=== PATIENT | male | born 1985 | race Caucasian/White ===

== ENCOUNTER → 2018-06-21 | Outpatient (CLI) | payer OTHER | LOC: M LRY 15:42 | DX: R10.32 Left lower quadrant pain (principal) | CPT/HCPCS: 74018 ==

== ENCOUNTER → 2018-06-21 | Outpatient (REF) | payer OTHER | LOC: M SFHCLERA 16:02 | DX: R10.32 Left lower quadrant pain (principal) ==

== ENCOUNTER 2018-08-14 15:57 | Emergency (ER) | payer OTHER | END 2018-08-14 18:36 | disposition left against medical advice (07) | LOC: M ED 15:57 | DX: R21 Rash and other nonspecific skin eruption (principal); Z53.21 Procedure and treatment not carried out due to patient leaving prior to being seen by health care provider ==

== ENCOUNTER 2018-08-17 12:36 | Emergency (ER) | payer OTHER | END 2018-08-17 17:30 | disposition home or self-care (01) | LOC: M ED 12:36 | DX: L29.9 Pruritus, unspecified (principal); R56.9 Unspecified convulsions; F33.9 Major depressive disorder, recurrent, unspecified; F41.9 Anxiety disorder, unspecified; F90.9 Attention-deficit hyperactivity disorder, unspecified type; Z79.899 Other long term (current) drug therapy; Z79.891 Long term (current) use of opiate analgesic | CPT/HCPCS: 99283 ==

== ENCOUNTER 2020-04-29 11:16 | Emergency (ER) | payer OTHER ==
[~2020-04-29] VITALS: Ht 182.9 cm; Wt 79.1 kg
[~2020-04-29 11:16] MED LIST: ADDE12.5 PO; ELIM5CRE2 TOP; HYDR-3363 PO; KEFL500C17 PO; SUBO8MIS SL
[2020-04-29] MEDS ORDERED: ADDE30TA (11:24)
[2020-04-29] MEDS ORDERED: SULF1TAB93 (11:24)
[2020-04-29] MEDS ORDERED: ADDE20TA (11:24)
[2020-04-29 12:06] LABS: BASO # 0.1 10^3/uL (0.0-0.2); BASO % 0.9 % (0.0-1.0); EOS # 0.2 10^3/uL (0.0-0.5); EOS % 3.1 % (0.0-3.0); HEMATOCRIT 40.7 % (42.0-52.0); HEMOGLOBIN 13.7 g/dl (13.5-17.5); LYMPH # 2.2 10^3/uL (1.5-5.0); MEAN CORPUSCULAR HEMOGLOBIN 29.5 pg (27.0-33.0); MEAN CORPUSCULAR HGB CONC 33.7 g/dl (32.0-36.5); MEAN CORPUSCULAR VOLUME 87.5 fl (80.0-96.0); MONO # 0.7 10^3/uL (0.0-0.8); MONO % 9.9 % (0.0-5.0); NEUTROPHILS # 3.5 10^3/uL (1.5-8.5); NEUTROPHILS % 52.7 % (36.0-66.0); PLATELET COUNT, AUTOMATED 295 10^3/uL (150-450); RED BLOOD COUNT 4.65 10^6/uL (4.30-6.10); WHITE BLOOD COUNT 6.7 10^3/uL (4.0-10.0)
[2020-04-29 12:34] LABS: ALBUMIN 3.5 GM/DL (3.2-5.2); ALT/SGPT 40 U/L (12-78); BILIRUBIN,TOTAL 0.2 MG/DL (0.2-1.0); BLOOD UREA NITROGEN 8 MG/DL (7-18); C REACTIVE PROTEIN QUANTITATIV 4.82 MG/DL (0.00-0.30); CALCIUM LEVEL 8.8 MG/DL (8.5-10.1); CARBON DIOXIDE LEVEL 30 MEQ/L (21-32); CHLORIDE LEVEL 103 MEQ/L (98-107); CREATININE FOR GFR 0.89 MG/DL (0.70-1.30); GLOMERULAR FILTRATION RATE > 60.0 (>60); GLUCOSE, FASTING 89 MG/DL (70-100); SODIUM LEVEL 138 MEQ/L (136-145); TOTAL PROTEIN 7.5 GM/DL (6.4-8.2)
[2020-04-29 12:38] LABS: ERYTHROCYTE SEDIMENTATION RATE 30 mm/hr (0-15)
--- NOTE | 2020-04-29 13:29 | REP ---
Right lower extremity Duplex Doppler venous ultrasound: Real time compression and duplex Doppler interrogation of the right lower extremity deep venous system is performed. The right common femoral, superficial femoral and popliteal veins are fully compressible with transducer pressure and demonstrate normal spontaneous and phasic flow, without evidence of deep venous thrombosis. Impression: No evidence of deep venous thrombosis of the right lower extremity femoral popliteal venous system. Electronically Signed by Beni Diaz MD 04/29/2020 01:21 P
[2020-04-29] MEDS ORDERED: DALBAVANCIN 1,500 MG in D5W 250 ML IV ONE (15:00)
[2020-04-29 16:06] VITALS: BP 115/63
== END 2020-04-29 16:18 | disposition home or self-care (01) ==
LOC: M ED 11:16
DX: L03.115 Cellulitis of right lower limb (principal); Z79.899 Other long term (current) drug therapy; Z79.891 Long term (current) use of opiate analgesic
CPT/HCPCS: 36415; 80053; 85025; 85652; 86140; 87040; 93971; 96365; 99284; J0875

== ENCOUNTER 2020-06-04 14:53 | Emergency (ER) | payer OTHER ==
[~2020-06-04] VITALS: Ht 182.9 cm; Wt 76.8 kg
[~2020-06-04 14:53] MED LIST changes: +ADDE20TA; +ADDE30TA; +SULF1TAB93
[2020-06-04] MEDS ORDERED: DOXY100C37 PO (15:24)
[2020-06-04] MEDS ORDERED: VANCOMYCIN HCL 750 MG, VIAL MATE ADAPTER 1 EACH in D5W 250 ML IV ONE ×6 (15:30)
[2020-06-04] MEDS ORDERED: VANCOMYCIN HCL 1,500 MG in D5W 250 ML IV ONE (15:30)
[2020-06-04] MEDS ORDERED: diphenhydrAMINE 50MG/ML VIAL (J1200) As Ordered ONE (15:38)
--- NOTE | 2020-06-04 15:47 | REP ---
Clinical: Cellulitis. Technique: AP and lateral views of the right tibia / fibula. Findings: Osseous structures are intact. No acute fracture or dislocation. No periosteal reaction. Surrounding soft tissues without subcutaneous emphysema or foreign body. Impression: Unremarkable examination. Electronically Signed by Siddharth Bui MD 06/04/2020 03:38 P
[2020-06-04] MEDS ORDERED: diphenhydrAMINE 50MG/ML VIAL (J1200) IV STA (15:48)
[2020-06-04 17:52] VITALS: BP 108/67
[2020-06-04] MEDS ORDERED: DOXYCYCLINE HYCLATE 100MG TABLET PO ONE (18:00)
== END 2020-06-04 17:55 | disposition home or self-care (01) ==
LOC: M ED 14:53
DX: L03.115 Cellulitis of right lower limb (principal); F90.9 Attention-deficit hyperactivity disorder, unspecified type; Z72.0 Tobacco use; F19.10 Other psychoactive substance abuse, uncomplicated; Z79.899 Other long term (current) drug therapy
CPT/HCPCS: 73590; 96365; 96366; 96375; 99283; J1200; J3370

== ENCOUNTER 2021-05-29 23:05 | Emergency (ER) | payer OTHER ==
[~2021-05-29] VITALS: Ht 182.9 cm; Wt 80.4 kg
[~2021-05-29 23:05] MED LIST changes: +BACTDSTA; +DOXY1CAP62 PO; -SULF1TAB93
[2021-05-29 23:06] VITALS: BP 152/83
[2021-05-30] MEDS ORDERED: DOXY1CAP62 PO (02:58)
[2021-05-30] MEDS ORDERED: DOXYCYCLINE HYCLATE 100MG TABLET PO ONE (03:00)
== END 2021-05-30 03:41 | disposition home or self-care (01) ==
LOC: M ED 23:05
DX: L03.90 Cellulitis, unspecified (principal); F19.11 Other psychoactive substance abuse, in remission; F17.200 Nicotine dependence, unspecified, uncomplicated; Z79.899 Other long term (current) drug therapy

== ENCOUNTER 2024-06-03 19:40 | Emergency (ER) | payer OTHER ==
[~2024-06-03] VITALS: Ht 182.9 cm; Wt 79.0 kg
[~2024-06-03 19:40] MED LIST changes: -ADDE20TA; +ADDE20TA PO; +CIPR-249 PO; +DOXY-323 PO; -DOXY1CAP62 PO
[2024-06-03] MEDS ORDERED: BUPR1SUB5 PO (20:11)
[2024-06-03] MEDS ORDERED: BUPR-597 PO (20:11)
[2024-06-03] MEDS: DERMABOND TOPICAL SKIN ADHESIVE TOP ONE (21:30)
[2024-06-03] MEDS: LIDOCAINE W/EPINEPHRINE 1% 20ML VIAL SC ONE (21:30)
[2024-06-03 23:10] VITALS: BP 115/76; TEMP 98; O2SAT 94
[2024-06-03] MEDS: AUGMENTIN 875 MG TAB PO ONE (23:16)
== END 2024-06-03 23:28 | disposition short-term general hospital (02) ==
LOC: M ED 19:40
DX: S01.81XA Laceration without foreign body of other part of head, initial encounter (principal); S02.122A Fracture of orbital roof, left side, initial encounter for closed fracture; S02.40DA Maxillary fracture, left side, initial encounter for closed fracture; Y04.8XXA Assault by other bodily force, initial encounter; Y92.009 Unspecified place in unspecified non-institutional (private) residence as the place of occurrence of the external cause; Y93.9 Activity, unspecified; Y99.9 Unspecified external cause status; I10 Essential (primary) hypertension; K21.9 Gastro-esophageal reflux disease without esophagitis; Z79.899 Other long term (current) drug therapy

== ENCOUNTER 2024-08-10 15:31 | Emergency (ER) | payer OTHER ==
[~2024-08-10] VITALS: Ht 188 cm; Wt 76.7 kg
[~2024-08-10 15:31] MED LIST changes: +BUPR-597 PO; +BUPR1SUB5 PO
[2024-08-10 19:05] VITALS: BP 122/84; TEMP 97.5; O2SAT 100
[2024-08-10] MEDS: KETOROLAC 60MG 2ML VIAL IM ONE (19:07)
[2024-08-10] MEDS: methocarbamoL 500 MG TAB PO ONE (19:07)
[2024-08-10] MEDS: methylPREDNISolone 125MG 2ML VIAL IV ONE (19:07)
[2024-08-10] MEDS ORDERED: PRED20TA PO (19:20)
== END 2024-08-10 19:48 | disposition left against medical advice (07) ==
LOC: M ED 15:31
DX: M51.17 Intervertebral disc disorders with radiculopathy, lumbosacral region (principal); Z53.9 Procedure and treatment not carried out, unspecified reason; T17.0XXA Foreign body in nasal sinus, initial encounter; G43.909 Migraine, unspecified, not intractable, without status migrainosus; K21.9 Gastro-esophageal reflux disease without esophagitis; N17.9 Acute kidney failure, unspecified; F17.200 Nicotine dependence, unspecified, uncomplicated; F19.10 Other psychoactive substance abuse, uncomplicated; Z79.899 Other long term (current) drug therapy
CPT/HCPCS: 70200; 72148; 96374; 99283; J2919

== ENCOUNTER 2024-08-14 16:34 | Emergency (ER) | payer OTHER ==
[~2024-08-14] VITALS: Ht 182.9 cm; Wt 77.2 kg
[~2024-08-14 16:34] MED LIST changes: +PRED20TA PO
[2024-08-14] MEDS: methocarbamoL 500 MG TAB PO ONE (18:22)
[2024-08-14] MEDS: KETOROLAC 30 MG/ML 1ML VIAL IV ONE (18:25)
[2024-08-14 22:52] VITALS: BP 138/89; TEMP 97.1; O2SAT 100
== END 2024-08-14 22:55 | disposition short-term general hospital (02) ==
LOC: M ED 16:34
DX: M51.16 Intervertebral disc disorders with radiculopathy, lumbar region (principal); K21.9 Gastro-esophageal reflux disease without esophagitis; N17.9 Acute kidney failure, unspecified; F17.200 Nicotine dependence, unspecified, uncomplicated; F19.10 Other psychoactive substance abuse, uncomplicated; Z79.899 Other long term (current) drug therapy
CPT/HCPCS: 96374; 99284; J1885

== ENCOUNTER 2024-10-03 13:22 | Emergency (ER) | payer OTHER ==
[~2024-10-03] VITALS: Ht 182.9 cm; Wt 80.8 kg
[~2024-10-03 13:22] MED LIST changes: -DOXY-323 PO; +DOXY-441 PO
[2024-10-03 14:12] LABS: BASO # 0.1 10^3/uL (0.0-0.2); BASO % 1.1 % (0.0-1.0); EOS # 0.2 10^3/uL (0.0-0.5); EOS % 2.6 % (0.0-3.0); HEMATOCRIT 41.1 % (42.0-52.0); HEMOGLOBIN 13.8 g/dl (13.5-17.5); LYMPH # 1.5 10^3/uL (1.5-5.0); LYMPH % 20.7 % (24.0-44.0); MEAN CORPUSCULAR HEMOGLOBIN 27.5 pg (27.0-33.0); MEAN CORPUSCULAR HGB CONC 33.6 g/dl (32.0-36.5); MEAN CORPUSCULAR VOLUME 81.9 fl (80.0-96.0); MONO # 0.5 10^3/uL (0.0-0.8); MONO % 6.9 % (2.0-8.0); NEUTROPHILS # 4.8 10^3/uL (1.5-8.5); NEUTROPHILS % 68.4 % (36.0-66.0); PLATELET COUNT, AUTOMATED 264 10^3/uL (150-450); RED BLOOD COUNT 5.02 10^6/uL (4.30-6.10)
[2024-10-03 14:19] LABS: ERYTHROCYTE SEDIMENTATION RATE 51 mm/hr (0-15)
[2024-10-03] MEDS: KETOROLAC 30 MG/ML 1ML VIAL IV ONE (14:45)
[2024-10-03] MEDS: AMPICILLIN SOD/SULBACTAM SOD 3 GM in SODIUM CHLORIDE 0.9% 100ML ADD 100 ML IV ONE (15:06)
[2024-10-03 15:20] VITALS: BP 110/75; TEMP 96.5; O2SAT 97
[2024-10-03] MEDS ORDERED: AMOX875T2 PO (15:41)
== END 2024-10-03 15:50 | disposition home or self-care (01) ==
LOC: M ED 13:22
DX: K04.7 Periapical abscess without sinus (principal); I10 Essential (primary) hypertension; F90.9 Attention-deficit hyperactivity disorder, unspecified type; F19.10 Other psychoactive substance abuse, uncomplicated; Z79.899 Other long term (current) drug therapy
CPT/HCPCS: 80047; 83605; 85025; 85652; 87040; 96365; 96375; 99284; J0295; J1885

== ENCOUNTER → 2025-09-12 | Outpatient (CLI) | payer MEDICAID, OTHER ==
[~2025-09-12] MED LIST changes: +AMOX875T2 PO; -BUPR-597 PO; +BUPR-766 PO; -ELIM5CRE2 TOP; +PERM60CR8 TOP
== END ==
LOC: M PLARAD 13:50
PROVIDERS: ATTEND Internal Medicine Medical Oncology
DX: C34.11 Malignant neoplasm of upper lobe, right bronchus or lung (principal)
CPT/HCPCS: 78815; A9552

== ENCOUNTER → 2025-09-22 | Outpatient (CLI) | payer MEDICAID, OTHER ==
[~2025-09-22] MED LIST changes: +LIDOCAINE 1% MDV 20 ML VIAL SC ONE
[2025-09-22 08:35] VITALS: TEMP 98.1
[2025-09-22 09:13] VITALS: BP 134/82; O2SAT 100
== END ==
LOC: M IRPRO 08:02
PROVIDERS: ATTEND Internal Medicine Medical Oncology
DX: D48.0 Neoplasm of uncertain behavior of bone and articular cartilage (principal); C34.90 Malignant neoplasm of unspecified part of unspecified bronchus or lung

== ENCOUNTER → 2025-11-07 | Outpatient (CLI) | payer OTHER ==
[~2025-11-07] MED LIST changes: +AUGM500T34 PO; -BACTDSTA; +ISOVUE-370 76% 100 ML VIAL As Ordered ONE; -LIDOCAINE 1% MDV 20 ML VIAL SC ONE; +SULF-8
== END ==
LOC: M RAD 08:48
PROVIDERS: ATTEND Internal Medicine Medical Oncology
DX: R91.8 Other nonspecific abnormal finding of lung field (principal)
CPT/HCPCS: 71260; Q9967

== ENCOUNTER → 2025-11-08 | Outpatient (CLI) | payer OTHER ==
[~2025-11-08] MED LIST changes: -ISOVUE-370 76% 100 ML VIAL As Ordered ONE
[2025-11-08 13:00] VITALS: TEMP 99.1
[2025-11-08 13:22] LABS: BASO # 0.1 10^3/uL (0.0-0.2); BASO % 1.1 % (0.0-1.0); EOS # 0.2 10^3/uL (0.0-0.5); EOS % 1.9 % (0.0-3.0); LYMPH # 1.9 10^3/uL (1.5-5.0); LYMPH % 24.3 % (24.0-44.0); MONO # 0.7 10^3/uL (0.0-0.8); MONO % 8.9 % (2.0-8.0); NEUTROPHILS # 5.1 10^3/uL (1.5-8.5); NEUTROPHILS % 63.5 % (36.0-66.0); PLATELET COUNT, AUTOMATED 289 10^3/uL (150-450)
[2025-11-08 13:50] VITALS: BP 129/72; O2SAT 95
[2025-11-08] MEDS: LIDOCAINE 1% MDV 20 ML VIAL SC SCH (14:32)
== END ==
LOC: M IRPRO 12:49
PROVIDERS: ATTEND Internal Medicine Medical Oncology
DX: D47.2 Monoclonal gammopathy (principal); C90.00 Multiple myeloma not having achieved remission